=== PATIENT | male | born 1985 | race Caucasian/White ===

== ENCOUNTER 2018-06-22 22:11 | Emergency (ER) | payer SELFPAY ==
--- OUTSIDE RECORDS SUMMARY | 2018-06-22 22:13 | XMS REPORT | Clinical Summary ---
:1985 Author Organization [facility] Address [address] [place] [address] Care Team Providers Name Role Phone Sharpless Primary Care Provider Allergies Not on File Medications Not on file Active Problems Not on file Encounters Date Type Specialty Care Team Description 09/24/2017 Emergency Emergency Medicine after 06/21/2017 Social History Tobacco Use Types Packs/Day Years Used Date Never Assessed Sex Assigned at Date Recorded Not on file Job Start Date Occupation Industry Not on file Not on file Not on file Travel History Travel Start Travel End No recent travel history available. Last Filed Vital Signs Not on file Plan of Treatment Not on file Results Not on fileafter 06/21/2017 Insurance Payer Benefit Plan / Group Subscriber ID Type Phone Address [employer] - [employer] HMO POS QPOS xxxxxx HMO/POS
[2018-06-22 22:50] LABS: Absolute Lymphocytes (CBC) 1.6 K/uL (0.7-4.9); Absolute Monocytes 0.6 K/uL (0.1-1.3); Basophils % 0.6 % (0-1.3); Eosinophils % 0.1 % (0-4.4); Hematocrit 39.6 % (39.6-49.0); Lymphocytes % 15.3 % (15.3-44.8); MPV 7.6 fL (7.6-11.3); Monocytes % 6.3 % (3.3-12.3); RBC Red Blood Cell Count 4.18 M/uL (4.33-5.43)
[2018-06-22 22:56] LABS: Protime INR 1.1
[2018-06-22 23:14] LABS: Albumin 3.9 g/dL (3.4-5.0); Bilirubin Direct 0.1 mg/dL (0-0.2); Bilirubin Total 0.4 mg/dL (0.2-1.0); Potassium 3.5 mmol/L (3.5-5.1); Protein, Total 6.6 g/dL (6.4-8.2)
[2018-06-23 00:16] LABS: Urine Blood NEGATIVE (NEG); Urine Glucose NEGATIVE (NEG); Urine Protein 1+ (NEG)
--- NOTE | 2018-06-23 00:35 | ER ---
Nurse's Notes [facility] Name: Pasha Chamorro Age: 32 yrs Sex: Male : 1985 Arrival Date: 06/22/2018 Time: 22:12 Bed 17 Private MD: Diagnosis: Abuse of non-psychoactive substances-vicodin and soma Presentation: 06/22 22:13 Presenting complaint: EMS states: mother called EMS due to pt staying in his room, not ak1 "taking care of himself", pt drug use. pt denies ETOH, pt admits 1 month of heroin use with last date used Thursday06/20/18. pt with slurred speech and unsteady gait. pt stated he took unknown amount of 10mg Vicodin at approximately 1900 tonight "to feel better". Transition of care: patient was not received from another setting of care. Onset of symptoms is unknown. Risk Assessment: Do you want to hurt yourself or someone else? Patient reports no desire to harm self or others. Other: pt denies suicidal ideations, pt denies homicidal ideations. Initial Sepsis Screen: Does the patient meet any 2 criteria? No. Patient's initial sepsis screen is negative. Does the patient have a suspected source of infection? No. Patient's initial sepsis screen is negative. Care prior to arrival: 20g IV to left AC, 250mL NS. 22:13 Acuity: POLO 2 ak1 22:13 Method Of Arrival: EMS: [facility] ak1 Triage Assessment: 22:21 General: Appears unkempt, Behavior is drowsy, restless, Reports drug abuse. Pain: ak1 Denies pain. EENT: No signs and/or symptoms were reported regarding the EENT system. Neuro: Level of Consciousness is awake, obeys commands, lethargic, Oriented to person, place, situation, Freight Car Builder are equal bilaterally Moves all extremities. Gait is unsteady, Speech is slurred, Facial symmetry appears normal. Cardiovascular: No deficits noted. Respiratory: No deficits noted. GI: No signs and/or symptoms were reported involving the gastrointestinal system. : No signs and/or symptoms were reported regarding the genitourinary system. Derm: No signs and/or symptoms reported regarding the dermatologic system. Musculoskeletal: No signs and/or symptoms reported regarding the musculoskeletal system. Historical: - Allergies: 22:21 No Known Allergies; ak1 - Home Meds: 22:21 suboxone [Active]; ak1 - PMHx: 22:21 None; ak1 - PSHx: 22:21 Cholecystectomy; left shoulder sx; ak1 - Immunization history:: Adult Immunizations unknown. - Social history:: Smoking status: Patient uses tobacco products, smokes one-half pack cigarettes per day, chewing tobacco, Patient uses street drugs, heroin, Patient/guardian denies using alcohol. - Ebola Screening: : No symptoms or risks identified at this time. Screenin:23 Abuse screen: Denies threats or abuse. Denies injuries from another. Nutritional ak1 screening: No deficits noted. Tuberculosis screening: No symptoms or risk factors identified. Fall Risk Gait- Impaired (20 pts.). Assessment: 22:23 Reassessment: Patient appears in no apparent distress at this time. No changes from ak1 previously documented assessment. EMS reported 114 FSBG. 22:23 Reassessment: spoke to Poison Control received recommendations of toxic work-up and bb supportive care with a minimum of 4 hours of observation and 7-12 hours if it was extended release hydrocodone. . 22:35 Reassessment: Miriam Bunch PERSONNEL ANALYST states pt took hydrocodone and soma 5 of each approx bb every 4 hours with the last ingestion at 1800 for a total of 20 tablets each. Poison Control called and notified of amount no new recommendations received. 22:56 Reassessment: pt father at bedside. pt requesting for his father to "take me AMA" will ak1 continue to monitor. 23:20 Reassessment: Patient appears in no apparent distress at this time. Patient and/or ak1 family updated on plan of care and expected duration. Pain level reassessed. pt resting with eyes closed. resp even and unlabored. skin warm and dry will continue to monitor. 06/23 00:08 Reassessment: Patient appears in no apparent distress at this time. No changes from ak1 previously documented assessment. Patient and/or family updated on plan of care and expected duration. Pain level reassessed. 01:30 Reassessment: Patient appears in no apparent distress at this time. No changes from ak1 previously documented assessment. Patient and/or family updated on plan of care and expected duration. Pain level reassessed. 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 pt will wait in ER 17 until his mother arrives. Overdose: 06/22 22:55 Overdose occurred 4-6 hours ago. ak1 Vital Signs: 22:12 BP 108 / 55; Pulse 101; Resp 16; Temp 98.2(O); Pulse Ox 97% on R/A; Weight 99.79 kg ak1 (R); Height 6 ft. 2 in. (187.96 cm) (R); Pain 0/10; 23:34 BP 117 / 78; Pulse 77; Resp 16; Pulse Ox 100% on R/A; ak1 06/23 00:09 BP 101 / 61; Pulse 71; Resp 16; Pulse Ox 98% on R/A; Pain 0/10; ak1 01:22 BP 111 / 82; Pulse 69; Resp 16; Temp 98.4; Pulse Ox 98% on R/A; Pain 0/10; ak1 06/22 22:12 Body Mass Index 28.25 (99.79 kg, 187.96 cm) ak1 ED Course: 06/22 22:12 Patient arrived in ED. ak1 22:16 Triage completed. ak1 22:21 Arm band placed on Patient placed in an exam room, on a stretcher, on campus monitor, ak1 on pulse oximetry, Patient notified of wait time. 22:23 Patient has correct armband on for positive identification. Placed in gown. Bed in low ak1 position. Call light in reach. Side rails up X2. Adult w/ patient. cafeteria monitor on. Pulse ox on. NIBP on. Door closed. Warm blanket given. 22:23 Maintain EMS IV. Dressing intact. Good blood return noted. Site clean \\T\\ dry. Gauge \\T\\ ak 1 site: 20g Left AC. 22:27 Kym Salvador RN is Primary Nurse. ak1 22:31 Miriam Bunch FNP-C is PHCP. kb 22:31 Wade Esquivel MD is Attending Physician. kb 22:49 No provider procedures requiring assistance completed. ak1 06/23 01:31 IV discontinued, intact, bleeding controlled, No redness/swelling at site. Pressure ak1 dressing applied. Administered Medications: 06/22 22:54 Drug: NS 0.9% 1000 ml Route: IV; Rate: 1000 ml; Site: left antecubital; ak1 06/23 00:08 Follow up: IV Status: Completed infusion; IV Intake: 1000ml ak1 Intake: 00:08 IV: 1000ml; Total: 1000ml. ak1 Outcome: 00:34 Discharge ordered by . dominique 01:30 Discharged to home ambulatory, with family. ak1 01:30 Condition: stable 01:30 Discharge instructions given to patient, family, Instructed on discharge instructions, follow up and referral plans. Demonstrated understanding of instructions, follow-up care. 01:52 Patient left the ED. ak1 Signatures: Miriam Bunch, WINDER CONTORT OPERATOR-C ELI-Eusebia Bal RN RN bb Kym Salvador, RN RN ak1 Corrections: (The following items were deleted from the chart) 06/22 22:43 22:23 Reassessment: spoke to Poison Control received recommendations of toxic work-up bb and supportive care with a minimum of 4 hours of observation and 7-12 hours if it was extended care hydrocodone. . bb
--- NOTE | 2018-06-23 00:35 | EDPHYS ---
Physician Documentation [facility] Name: Pasha Chamorro Age: 32 yrs Sex: Male : 1985 Arrival Date: 06/22/2018 Time: 22:12 Bed 17 Private MD: ED Physician Wade Esquivel HPI: 06/22 22:44 This 32 yrs old Male presents to ER via EMS with complaints of Accidental kb Overdose. 22:44 The patient presents to the emergency department after a known overdose, a result of kb recreational substance abuse. Context: Method: the patient has a confirmed or suspected ingestion, Time: at 18:00, Extent: 5 soma and 5 hydrocodone, the OD/poisoning occurred at at home, and was witnessed no one. Associated signs and symptoms: The patient has no apparent associated signs or symptoms. Severity of symptoms: At their worst the symptoms were moderate in the emergency department the symptoms are unchanged. The patient has experienced similar episodes in the past. The patient has not recently seen a physician. Pt states he normally does heroin daily, but hasn't had any since Thursday. States he took a total of 20 hydrocodone and 20 soma today. States he took 5 of each pill at a time about every 4 hours. States he is used to these medications. Pt is awake, alert and oriented x4. Denies suicidal and homicidal ideations. . Historical: - Allergies: 22:21 No Known Allergies; ak1 - Home Meds: 22:21 suboxone [Active]; ak1 - PMHx: 22:21 None; ak1 - PSHx: 22:21 Cholecystectomy; left shoulder sx; ak1 - Immunization history:: Adult Immunizations unknown. - Social history:: Smoking status: Patient uses tobacco products, smokes one-half pack cigarettes per day, chewing tobacco, Patient uses street drugs, heroin, Patient/guardian denies using alcohol. - Ebola Screening: : No symptoms or risks identified at this time. ROS: 22:37 Constitutional: Negative for fever, chills, and weight loss, ENT: Negative for injury, kb pain, and discharge, Neck: Negative for injury, pain, and swelling, Cardiovascular: Negative for chest pain, palpitations, and edema, Respiratory: Negative for shortness of breath, cough, wheezing, and pleuritic chest pain, Abdomen/GI: Negative for abdominal pain, nausea, vomiting, diarrhea, and constipation, Back: Negative for injury and pain, : Negative for injury, bleeding, discharge, and swelling, MS/Extremity: Negative for injury and deformity, Skin: Negative for injury, rash, and discoloration, Neuro: Negative for headache, weakness, numbness, tingling, and seizure, Psych: Negative for depression, anxiety, suicide ideation, homicidal ideation, and hallucinations. Exam: 22:47 Constitutional: This is a well developed, well nourished patient who is awake, alert, kb and in no acute distress. Head/Face: Normocephalic, atraumatic. ENT: Nares patent. No nasal discharge, no septal abnormalities noted. Tympanic membranes are normal and external auditory canals are clear. Oropharynx with no redness, swelling, or masses, exudates, or evidence of obstruction, uvula midline. Mucous membranes moist. Neck: Trachea midline, no thyromegaly or masses palpated, and no cervical lymphadenopathy. Supple, full range of motion without nuchal rigidity, or vertebral point tenderness. No Meningismus. Chest/axilla: Normal chest wall appearance and motion. Nontender with no deformity. No lesions are appreciated. Cardiovascular: Regular rate and rhythm with a normal S1 and S2. No gallops, murmurs, or rubs. Normal PMI, no JVD. No pulse deficits. Respiratory: Lungs have equal breath sounds bilaterally, clear to auscultation and percussion. No rales, rhonchi or wheezes noted. No increased work of breathing, no retractions or nasal flaring. Abdomen/GI: Soft, non-tender, with normal bowel sounds. No distension or tympany. No guarding or rebound. No evidence of tenderness throughout. Skin: Warm, dry with normal turgor. Normal color with no rashes, no lesions, and no evidence of cellulitis. MS/ Extremity: Pulses equal, no cyanosis. Neurovascular intact. Full, normal range of motion. Neuro: Awake and alert, GCS 15, oriented to person, place, time, and situation. Cranial nerves II-XII grossly intact. Motor strength 5/5 in all extremities. Sensory grossly intact. Cerebellar exam normal. Normal gait. Vital Signs: 22:12 BP 108 / 55; Pulse 101; Resp 16; Temp 98.2(O); Pulse Ox 97% on R/A; Weight 99.79 kg ak1 (R); Height 6 ft. 2 in. (187.96 cm) (R); Pain 0/10; 23:34 BP 117 / 78; Pulse 77; Resp 16; Pulse Ox 100% on R/A; ak1 06/23 00:09 BP 101 / 61; Pulse 71; Resp 16; Pulse Ox 98% on R/A; Pain 0/10; ak1 01:22 BP 111 / 82; Pulse 69; Resp 16; Temp 98.4; Pulse Ox 98% on R/A; Pain 0/10; ak1 06/22 22:12 Body Mass Index 28.25 (99.79 kg, 187.96 cm) ak1 MDM: 06/22 22:31 Patient medically screened. kb 22:47 Data reviewed: vital signs, nurses notes. Data interpreted: Pulse oximetry: on room air kb is 97 %. Interpretation: normal. ED course: Father at bedside. Pt informed that he is going to be here through the night for observation. States "I have to go to work at 5." . 06/23 00:33 Counseling: I had a detailed discussion with the patient and/or guardian regarding: the kb historical points, exam findings, and any diagnostic results supporting the discharge/admit diagnosis, lab results, the need for outpatient follow up, a family practitioner, to return to the emergency department if symptoms worsen or persist or if there are any questions or concerns that arise at home. ED course: Speech clear, pt A\\T\\Ox4. No complaints. . 06/22 22:26 Order name: Acetaminophen; Complete Time: 23:17 dc06/22 22:26 Order name: Basic Metabolic Panel; Complete Time: 23:17 ak06/22 22:26 Order name: CBC with Diff; Complete Time: 22:59 ak06/22 22:26 Order name: ETOH Level; Complete Time: 23:17 ak06/22 22:26 Order name: Hepatic Function; Complete Time: 23:17 dc06/22 22:26 Order name: PT-INR; Complete Time: 22:59 dc06/22 22:26 Order name: Ptt, Activated; Complete Time: 22:59 [facility] 06/22 22:26 Order name: Salicylate; Complete Time: 23:17 ak1 06/22 22:26 Order name: Urine Drug Screen; Complete Time: 00:59 ak1 06/22 22:26 Order name: EKG; Complete Time: 22:27 ak1 06/22 22:26 Order name: EKG - Nurse/Tech; Complete Time: 22:55 ak1 06/22 22:26 Order name: IV Saline Lock; Complete Time: 22:26 ak1 06/23 00:05 Order name: Urine Dipstick--Ancillary (enter results); Complete Time: 00:25 ar5 06/22 22:26 Order name: Labs collected and sent; Complete Time: 22:26 ak1 06/22 22:26 Order name: Urine Dipstick-Ancillary (obtain specimen); Complete Time: 00:08 [facility] Administered Medications: 06/22 22:54 Drug: NS 0.9% 1000 ml Route: IV; Rate: 1000 ml; Site: left antecubital; dc1 06/23 00:08 Follow up: IV Status: Completed infusion; IV Intake: 1000ml [facility] Disposition: 07:49 Co-signature as Attending Physician, Wade Esquivel MD I agree with the assessment and jam plan of care. Disposition: 06/23/18 00:34 Discharged to Home. Impression: Abuse of non-psychoactive substances - vicodin and soma. - Condition is Stable. - Discharge Instructions: Substance Use Disorder. - Medication Reconciliation Form, Thank You Letter, Antibiotic Education, Prescription Opioid Use, Work release form form. - Follow up: Private Physician; When: 2 - 3 days; Reason: Recheck today's complaints, Continuance of care, Re-evaluation by your physician. - Problem is new. - Symptoms have improved. Signatures: Dispatcher [employer] EDMiriam Holliday, HOSE TURNER-C HOSE TURNER-Wade Gallardo MD MD cha Krenek, Amber, RN RN ak1 Corrections: (The following items were deleted from the chart) 01:52 00:34 06/23/2018 00:34 Discharged to Home. Impression: Abuse of non-psychoactive [facility] substances - vicodin and soma. Condition is Stable. Discharge Instructions: Substance Use Disorder. Forms are Prescription Opioid Use, Medication Reconciliation Form, Thank You Letter, Antibiotic Education. Follow up: Private Physician; When: 2 - 3 days; Reason: Recheck today's complaints, Continuance of care, Re-evaluation by your physician. Problem is new. Symptoms have improved. kb
[2018-06-23 00:51] LABS: Barbiturates NEGATIVE (NEGATIVE); Benzodiazepines NEGATIVE (NEGATIVE); Cocaine NEGATIVE (NEGATIVE); METHAMPHETAM NEGATIVE (NEGATIVE); Methadone NEGATIVE (NEGATIVE); Opiates POSITIVE (NEGATIVE); Phencyclidine NEGATIVE (NEGATIVE); THC Cannibis NEGATIVE (NEGATIVE)
--- NOTE | 2018-06-23 07:15 | EKG ---
Test Date: 2018-06-22 Test Time: 22:38:25 Manager Assessment: AG3 MEASUREMENT RESULTS: Intervals: Rate: 92 GA: 162 QRSD: 90 QT: 388 QTc: 479 [place]: P: 58 GA: 162 QRS: 19 T: 20 INTERPRETIVE STATEMENTS: Normal sinus rhythm Normal ECG Compared to ECG 07/05/2003 14:59:00 Sinus arrhythmia no longer present Electronically Signed On 06-23-18 07:14:37 WATER POLLUTION CONTROL TECHNICIAN by Adolfo Mcgowan
== END 2018-06-23 01:52 | disposition home or self-care (01) ==
LOC: ER 22:11
DX: F55.8 Abuse of other non-psychoactive substances (principal); F17.210 Nicotine dependence, cigarettes, uncomplicated
CPT/HCPCS: 36415; 80048; 80076; 80307; 80320; 80329; 81003; 85025; 85610; 85730; 93005; 96360; 99284